=== PATIENT | female | born 1970 | race Caucasian/White ===

== ENCOUNTER 2018-01-14 09:14 | Day surgery (SDC) | payer MEDICAID ==
[~2018-01-14 09:14] MED LIST: Lactated Ringers 1,000 ML IV SCH; Sodium Chloride 0.9% 10 ML Syringe FLUSH PRN; Sodium Chloride 0.9% 2.5 ML Syringe FLUSH PRN
[2018-01-14] MEDS ORDERED: fentaNYL 250 MCG/5 ML SDV ONE (09:48)
[2018-01-14] MEDS ORDERED: Propofol 200 MG/20 ML SDV ONE (09:48)
[2018-01-14] MEDS ORDERED: Midazolam 1 MG/ML 2 ML SDV ONE (09:48)
[2018-01-14] MEDS ORDERED: Ondansetron 4 MG/2 ML SDV ONE (09:49)
[2018-01-14] MEDS ORDERED: Dexamethasone 4 MG/ML 5 ML MDV ONE (09:49)
[2018-01-14] MEDS ORDERED: fentaNYL 100 MCG/2 ML SDV IVPUSH PRN (13:13)
[2018-01-14] MEDS ORDERED: Glycopyrrolate 0.2 MG/ML SDV ONE (13:17)
[2018-01-14] MEDS ORDERED: Acetaminophen/oxyCODONE 325-5 MG Tab PO PRN (13:36)
--- NOTE | 2018-01-14 13:36 | PCM.OPNOTE ---
- General Post-Op/Procedure Note Date of Surgery/Procedure: 01/14/18 Operative Procedure(s): Hysteroscopy, polypectomy and Dilatation with curettage Findings: 7 -8 weeks anteverted mobile uterus, sounded to 8cm. No adnexal masses. Polyps posterior uterine wall Pre Op Diagnosis: Menorrhagia, Endometrial polyps Post-Op Diagnosis: Same Anesthesia Technique: General LMA Primary Surgeon: Xin Rao Pathology: ECC, Endometrial curetting, polyps Fluid Replacement, Intraop: 1,000 EBL in mLs: 10 Complications: None Condition: Good
--- NOTE | 2018-01-14 14:06 | PCM48HPAN ---
Post Anesthesia Note - EVALUATION WITHIN 48HRS OF ANESTHETIC Vital Signs in Normal Range: Yes Patient Participated in Evaluation: Yes Respiratory Function Stable: Yes Airway Patent: Yes Cardiovascular Function Stable: Yes Hydration Status Stable: Yes Pain Control Satisfactory: Yes Nausea and Vomiting Control Satisfactory: Yes Mental Status Recovered: Yes Resp Rate: 12
--- NOTE | 2018-01-14 14:06 | PCM.POSTAN ---
POST ANESTHESIA ASSESSMENT - MENTAL STATUS Mental Status: Alert, Oriented - RESPIRATORY Respiratory Status: Respiratory Rate WNL, Airway Patent, O2 Saturation Stable - CARDIOVASCULAR CV Status: Pulse Rate WNL, Blood Pressure Stable - GASTROINTESTINAL GI Status: No Symptoms - POST OP HYDRATION Hydration Status: Adequate & Stable
--- NOTE | 2018-01-14 14:06 | PCM.PREANE ---
Preanesthetic Assessment - Anesthesia/Transfusion/Family Hx Anesthesia History: Prior Anesthesia Without Reaction Transfusion History: No Prior Transfusion(s) - Review of Systems General: No Symptoms Pulmonary: No Symptoms Cardiovascular: No Symptoms Gastrointestinal: No Symptoms Neurological: No Symptoms Other: Reports: None - Physical Assessment NPO Status Date: 01/13/18 NPO Status Time: 23:00 O2 Sat by Pulse Oximetry: 98 Respiratory Rate: 12 Vital Signs: Last Vital Signs Temp 36.4 C 01/14/18 13:36 Pulse 76 01/14/18 13:57 Resp 12 01/14/18 13:57 BP 105/50 L 01/14/18 13:57 Pulse Ox 98 01/14/18 13:57 Height: 1.68 m Weight: 59.874 kg ASA Class: 2 Mental Status: Alert & Oriented x3 Dentition: Reports: Normal Dentition ROM/Head Extension: Full Lungs: Clear to Auscultation, Normal Respiratory Effort Cardiovascular: Regular Rate, Regular Rhythm - Lab Values: Laboratory Last Values WBC 6.07 K/uL (4.0-11.0) 01/14/18 09:41 RBC 4.53 M/uL (4.30-5.90) 01/14/18 09:41 Hgb 14.0 g/dL (12.0-16.0) 01/14/18 09:41 Hct 40.7 % (36.0-46.0) 01/14/18 09:41 MCV 89.8 fL (80.0-98.0) 01/14/18 09:41 MCH 30.9 pg (27.0-32.0) 01/14/18 09:41 MCHC 34.4 g/dL (31.0-37.0) 01/14/18 09:41 RDW Std Deviation 45.8 fl (28.0-62.0) 01/14/18 09:41 RDW Coeff of José Miguel 14 % (11.0-15.0) 01/14/18 09:41 Plt Count 183 K/uL (150-400) 01/14/18 09:41 MPV 10.20 fL (7.40-12.00) 01/14/18 09:41 Nucleated RBC % 0.0 /100WBC 01/14/18 09:41 Nucleated RBCs # 0 K/uL 01/14/18 09:41 Urine HCG, Qual NEGATIVE (NEGATIVE) 01/14/18 09:25 - Allergies Allergies/Adverse Reactions: Allergies Allergy/AdvReac Type Severity Reaction Status Date / Time No Known Allergies Allergy Verified 01/09/18 08:22 - Anesthesia Plan Pre-Op Medication Ordered: None - Acknowledgements Anesthesia Type Planned: General Anesthesia Pt an Appropriate Candidate for the Planned Anesthesia: Yes Alternatives and Risks of Anesthesia Discussed w Pt/Guardian: Yes Pt/Guardian Understands and Agrees with Anesthesia Plan: Yes PreAnesthesia Questionnaire HEENT History: Reports: Other (See Below) Other HEENT History: wears glasses/contacts Cardiovascular History: Reports: Other (See Below) Other Cardiovascular History: varicose vein stripping [employer] ) History: Reports: Dysfunctional Uterine Bleeding - Past Surgical History Head Surgeries/Procedures: Reports: None - SUBSTANCE USE Smoking Status *Q: Current Every Day Smoker Tobacco Use Within Last Twelve Months: Cigarettes Recreational Drug Use History: No - HOME MEDS Home Medications: Home Meds Cholecalciferol (Vitamin D3) [Vitamin D3] 1 tab PO DAILY 01/09/18 [History] Cyanocobalamin (Vitamin B-12) [Vitamin B-12] 1,000 mcg PO DAILY 01/09/18 [ History] PNV95/Ferrous Fumarate/FA [ Vitamin Tablet] 1 tab PO DAILY 01/09/18 [ History] - CURRENT (IN HOUSE) MEDS Current Meds: Current Medications Fentanyl (Sublimaze) 50 mcg IVPUSH Q5M PRN PRN Reason: Pain (moderate 4-6) Stop: 01/15/18 15:00 Oxycodone/Acetaminophen (Percocet 325-5 Mg) 1 tab PO Q4H PRN PRN Reason: Pain Discontinued Medications Dexamethasone (Dexamethasone) Confirm Administered Dose 20 mg .ROUTE .STK-MED ONE Stop: 01/14/18 09:50 Fentanyl (Sublimaze) Confirm Administered Dose 250 mcg .ROUTE .STK-MED ONE Stop: 01/14/18 09:49 Glycopyrrolate (Robinul) Confirm Administered Dose 0.2 mg .ROUTE .STK-MED ONE Stop: 01/14/18 13:18 Lactated Ringer's (Ringers, Lactated) 1,000 mls @ 125 mls/hr IV ASDIRECTED TRICIA Last Admin: 01/14/18 09:43 Dose: 125 mls/hr Midazolam HCl (Versed 1 Mg/Ml) Confirm Administered Dose 2 mg .ROUTE .STK-MED ONE Stop: 01/14/18 09:49 Ondansetron HCl (Zofran) Confirm Administered Dose 4 mg .ROUTE .STK-MED ONE Stop: 01/14/18 09:50 Propofol (Diprivan 20 Ml) Confirm Administered Dose 200 mg .ROUTE .STK-MED ONE Stop: 01/14/18 09:49 Sodium Chloride (Saline Flush) 10 ml FLUSH ASDIRECTED PRN PRN Reason: Keep Vein Open Sodium Chloride (Saline Flush) 2.5 ml FLUSH ASDIRECTED PRN PRN Reason: Keep Vein Open
--- NOTE | 2018-01-14 20:03 | OR ---
SURGEON: Xin Rao MD DATE OF PROCEDURE: 01/14/2018 PREOPERATIVE DIAGNOSES: 1. Excessive frequent bleeding in irregular cycles. 2. Endometrial polyp. POSTOPERATIVE DIAGNOSES: 1. Excessive frequent bleeding in irregular cycles. 2. Endometrial polyps. PROCEDURES: Hysteroscopy, polypectomy, dilatation with curettage. ANESTHESIA: General LMA. ESTIMATED BLOOD LOSS: Minimal. COMPLICATIONS: None. DISPOSITION: Stable to recovery room. PATHOLOGY: Endometrial polyps, endometrial and endocervical curettings. FINDINGS: Mobile, anteverted uterus sounded to 8 cm. No cervical lesions visualized.No adnexal masses palpated. Hysteroscopic findings revealed posterior wall endometrial polyps. Both fallopian tube ostia were visualized on hysteroscopy. BRIEF HISTORY: The patient is a 47-year-old lady who was evaluated in the clinic with history of excessive frequent bleeding in irregular cycles. Sonohysterogram showed an endometrial polyp and the office endometrial biopsy was reported as proliferative endometrium with a differential diagnosis of a possible benign endometrial hyperplasia without atypia, but due to insufficient tissue, this diagnosis was not definite. I reviewed the sonohysterogram findings with the patient and recommended to proceed with a hysteroscopy, polypectomy with D and C. The patient accepted the recommendation. The risks of the procedure were discussed with her in detail including but not limited to bleeding, infection, injury to the uterus, cervix, and other surrounding organs. The appropriate surgical consent was obtained. DESCRIPTION OF PROCEDURE: The patient was taken to the operating room, where she underwent induction of general anesthesia without difficulty. After adequate level of anesthesia, she was placed in dorsal lithotomy position, prepped and draped in usual sterile fashion for vaginal procedure. The bladder was emptied. A time-out was held. SCDs in place. Examination under anesthesia revealed the aforementioned findings. A bivalve speculum was placed in the vagina. The anterior lip of the cervix was grasped with an Allis clamp. The uterus was sounded up to a depth of 8 cm. An ECC was performed and the sample was cleared with the Cytobrush. The cervical os was then dilated up to #6 Hegar dilator. The 6.5 mm MyoSure operative hysteroscope was inserted into the uterine cavity under direct visualization using the normal saline as distention media. Upon entering the uterine cavity, the aforementioned pathology was noted. The outflow channel of the MyoSure device was then removed under direct visualization and the MyoSure tissue retrieval device was inserted through the channel. The retriever device was then aligned along the polyps and the polyps were easily resected completely. The survey of the uterine cavity post resection reveals no uterine wall injury. The MyoSure hysteroscopic device was then removed from the cavity. Gentle endometrial curettage was then performed. Once this was completed, all instruments were removed from the patient's vagina and the area on the cervix where the Allis clamp was placed was found to be hemostatic. All sponge and instrument counts were correct. Input and output of normal saline was recorded by the MyoSure fluid management system. The deficit was rated at 560 mL. The patient was taken to the recovery room in a stable condition. ADUMVIV / KEVIN /[id number] MTDD
== END 2018-01-14 14:55 | disposition home or self-care (01) ==
LOC: MW.SDS 09:14
PROVIDERS: ATTEND Obstetrics & Gynecology
DX: N84.0 Polyp of corpus uteri (principal); N92.1 Excessive and frequent menstruation with irregular cycle; F17.210 Nicotine dependence, cigarettes, uncomplicated; Z79.899 Other long term (current) drug therapy
CPT/HCPCS: 36415; 58558; 81025; 85027; J1100; J2250; J2405; J3010; J7120; J2704